=== PATIENT | female | born 2005 | race Caucasian/White ===

== ENCOUNTER 2025-05-10 22:35 | Emergency (ER) | payer OTHER, SELFPAY ==
--- NOTE | ~2025-05-10 | XR_ITS ---
Examination: XR chest 2V Clinical History: cough x 4 days Comparison: None Technique: PA and Lateral Findings: Cardiomediastinal silhouette normal size and configuration. Lungs clear. No acute bony abnormality. IMPRESSION: 1. No acute cardiopulmonary findings. Reviewed, dictated and finalized at location R. TH AIDE
[2025-05-10 23:00] VITALS: BP 138/63; PULSE 72; RESP 18; TEMP 36.7; O2SAT 98
--- NOTE | 2025-05-10 23:02 | ED.URI ---
HPI - URI/Sore Throat General Chief Complaint: Upper Respiratory Infection Stated Complaint: sinus infection Time Seen by Provider: 05/10/25 22:39 History of Present Illness HPI Narrative: Patient is a 20-year-old female who presents to the ER with concerns for a ?sinus infection. She reports her symptoms started on Monday, 4 days ago. Patient endorses a fever with a T-max of 102?. She also endorses congestion, sore throat, cough, eye drainage, bilateral eye puffiness. Patient reports she has taken Robitussin and Mucinex at home without much relief of her symptoms. She denies any medical history relevant to this ER visit. Patient denies any shortness of breath, chest pain, abdominal pain, or mastoid tenderness. She also endorses bilateral eye redness, discomfort, and both eyes were matted shut when she woke up this morning. Related Data Allergies Allergy/AdvReac Type Severity Reaction Status Date / Time No Known Allergies Allergy Verified 05/10/25 22:38 Review of Systems Review of Systems: All systems reviewed & are unremarkable except as noted in HPI and below Exam Narrative: GENERAL: Ill appearing, well-nourished, non-toxic, in no acute distress. HEAD: Normocephalic, atraumatic. No excessive redness or swelling to tonsils. Tympanic membranes clear without redness. Slightly reddened scleras, no purulent drainage noted NECK: Supple. Mild cervical adenopathy, no masses. RESPIRATORY: Airway patent, respirations nonlabored. Clear to auscultation bilaterally, no rales, rhonchi, wheezing. CARDIOVASCULAR: Regular rate and rhythm without murmurs, rubs, or gallops. Peripheral pulses 2+ and equal bilaterally. ABDOMINAL: Soft, nontender, nondistended, no hepatosplenomegaly. Normoactive BS. MUSCULOSKELETAL: Moves all extremities. Strength/ROM intact without gross deformities. SKIN: Warm, dry, normal color. No rashes. NEURO: A&O X3. Speech clear. Cranial nerves II-XII intact. No ataxic movements. PSYCHIATRIC: Appropriate mood and affect. Normal interaction. MDM - URI/Sore Throat MDM Narrative Medical decision making narrative: Patient is a 20-year-old female who presents to the ER with concerns for a ?sinus infection. She reports her symptoms started on Jennifer, 4 days ago. Patient endorses a fever with a T-max of 102?. She also endorses congestion, sore throat, cough, eye drainage, bilateral eye puffiness. Patient reports she has taken Robitussin and Mucinex at home without much relief of her symptoms. She denies any medical history relevant to this ER visit. Patient denies any shortness of breath, chest pain, abdominal pain, or mastoid tenderness. She also endorses bilateral eye redness, discomfort, and both eyes were matted shut when she woke up this morning. Labs Ordered: COVID, strep, monotest Imaging Ordered: chest x-ray Medications Ordered: Toradol 60mg IM, Prednisone PO Results: Pt's monotest was negative. Pt's chest x-ray indicates no acute cardiopulmonary abnormalities. Diagnosis: Upper respiratory infection, bilateral conjunctivitis, sinusitis Patient Education/Shared MDM: Results of lab work and imaging shared with patient. She endorses mild improvement of symptoms following medication administration. Patient strongly advised to maintain hydration status upon discharge and follow-up with her PCP as needed. She will be discharged home with a prescription for a Ciprofloxacin, Medrol Dose Roberto, Tessalon Perles, and an albuterol inhaler. Strict return precautions provided. Patient verbalized understanding and is in agreement with plan. Vital signs stable at time of discharge. All questions answered. Differential Diagnosis Differential diagnosis: Likely upper respiratory infection, otitis media, viral infection, bronchitis and influenza Lab Data Attestation: I reviewed the patient's lab results. Labs: Lab Results 05/10/25 05/10/25 Range/Units 23:21 23:27 POC Urine HCG, Qual Negative (Negative) Monoscreen Negative (Negative) Influenza A (RT-PCR) Negative (Negative) Influenza B (RT-PCR) Negative (Negative) RSV (RT-PCR) Negative (Negative) SARS-CoV-2 RNA (RT-PCR) Negative (Negative) Group A Strep (PCR) Not detected (Negative) Imaging Data Attestation: I personally reviewed and interpreted this imaging study as follows: My impression: Pt's chest x-ray indicates no acute cardiopulmonary abnormalities. Discharge Plan Discharge Clinical Impression: Upper respiratory infection, Conjunctivitis, Sinusitis Patient Disposition: Home Condition: Stable Instructions: Antibiotic Form, Upper Respiratory Infection (ED), Conjunctivitis (ED) Additional Instructions: Please return to the ER with any worsening symptoms. Follow-up with primary care provider as needed for further evaluation. You may take Tylenol and/or ibuprofen for pain control. Please remember to drink lots of water. Patient Language: Austrian Prescriptions: New methylprednisolone [Medrol (Roberto)] 4 mg tablets,dose pack See Rx Instructions .ROUTE .COMPLEX Qty: 21 0RF Rx Instructions: for 6 days albuterol sulfate [Ventolin HFA] 90 mcg/actuation HFA aerosol inhaler 2 puff inhalation QID PRN (Reason: shortness of breath or wheezing) Qty: 8.5 0RF ciprofloxacin HCl 0.3 % drops See Rx Instructions .ROUTE .COMPLEX Qty: 5 0RF Rx Instructions: put 1-2 drps in affected eye(s) every 2hr up to 8 times/day x2days; then 4 times/day x5days benzonatate 100 mg capsule 100 mg PO TID Qty: 20 0RF Follow-up/Referrals: Bonny Bloom MD [Primary Care Provider, Family Practice] Stand Alone Forms: Work/School Release IP Time of Disposition: 00:41
[2025-05-10] MEDS: KETOROLAC (*BKC) 60 MG/2 ML VIAL IM (23:22)
[2025-05-10 23:24] LABS: BEDSIDEPREGUCG Negative (Negative)
[2025-05-10 23:45] LABS: Negative Monotest Control Negative (Negative); Positive Monotest Control Positive (Positive)
[2025-05-10 23:58] LABS: Strep Group A RT-PCR NOT DETECTED (Negative)
[2025-05-11 00:09] LABS: Influenza A QL RT-PCR Negative (Negative); Influenza B QL RT-PCR Negative (Negative); RSV RNA, RT-PCR Negative (Negative); SARS-CoV-2 RNA PCR Negative (Negative)
[2025-05-11 00:40] VITALS: O2SAT 98
[2025-05-11 00:48] VITALS: BP 121/58; PULSE 86; RESP 16; TEMP 36.7; O2SAT 98
== END 2025-05-11 00:52 | disposition home or self-care (01) ==
PROVIDERS: Emergency Provider Registered Nurse; PCP Family Medicine
DX: J06.9 Acute upper respiratory infection, unspecified (principal); J32.9 Chronic sinusitis, unspecified; H10.9 Unspecified conjunctivitis; Z20.822 Contact with and (suspected) exposure to COVID-19
CPT/HCPCS: 36415; 71046; 81025; 86308; 87637; 87651; 96372; 99283; J1885; J7512